=== PATIENT | female | born 1945 | race Caucasian/White ===

== ENCOUNTER 2018-03-26 09:45 | Emergency (ER) | payer MEDICARE ==
[2018-03-26] MEDS ORDERED: Meclizine TAB* 12.5 MG PO ONE (10:23)
--- NOTE | 2018-03-26 10:26 | ED ---
Dizziness - HPI Summary HPI Summary: Pt is a 73 y/o female who presents to the ED c/o dizziness. She states the symptoms began when she woke up at 8:00 this morning. Pt states her legs feel weak, she is off-balance when she walks, and has blurry vision. Bending her neck backwards makes the symptoms worse. She also c/o nausea and mild CP, which she notes might be due to burping. As per , she has had more BMs than normal. Pt denies any SOB and states the room is not spinning. She has a hx of vertigo, but has not had vertigo in 6 years, and states this does not feel like vertigo. Pt used to be on meclizine for her vertigo, but states that it never has really helped her symptoms. She denies any recent antibiotics. Pt is a smoker. - History Of Current Complaint Chief Complaint: EDDizziness Stated Complaint: DIZZINESS/NAUSEA Time Seen by Provider: 03/26/18 10:08 Hx Obtained From: Patient, Family/Corporate Librarian - Onset/Duration: Still Present Timing: Hours - 8:00 this morning Character: Weak, Dizzy Aggravating Factor(s): Change In Head Position - Moving head backwards Alleviating Factor(s): Nothing Associated Signs And Symptoms: Positive: Nausea, Chest Pain, Unsteady Gait, Visual Changes - Blurry vision. Negative: SOB Related History: Similar Episode/Dx as - Vertigo - Allergies/Home Medications Allergies/Adverse Reactions: Allergies Allergy/AdvReac Type Severity Reaction Status Date / Time MS Baclofen [Baclofen] Allergy Severe Shortness Verified 06/21/12 08:07 of Breath MS Codeine [Codeine] Allergy Mild Hives Verified 06/21/12 08:07 MS Penicillin G Allergy Mild GI Upset Verified 06/21/12 08:07 [Penicillin G] MS Prednisone [Prednisone] Allergy Mild Anxiety Verified 06/21/12 08:07 Home Medications: Home Medications Amitriptyline TAB* [Elavil TAB*] 20 mg PO BEDTIME 03/26/18 [History Confirmed ] Calcium Carbonate/Vitamin D3 [Calcium 600 + Vit D Tablet] 1 tab PO DAILY [History Confirmed 03/26/18] Clorazepate TAB* [Tranxene TAB*] 15 mg PO QID PRN 03/26/18 [History Confirmed ] Famotidine TAB* [Pepcid 20 MG TAB*] 40 mg PO QAM 03/26/18 [History Confirmed ] Gabapentin CAP(*) [Neurontin 100 mg CAP(*)] 100 mg PO BID 03/26/18 [History Confirmed 03/26/18] Lidocaine PATCH 5%* [Lidoderm 5% Patch*] 1 patch TRANSDERM DAILY 03/26/18 [ History Confirmed 03/26/18] Meclizine TAB* [Antivert 12.5 TAB*] 25 mg PO TID PRN 03/26/18 [History Confirmed 03/26/18] Pravastatin (NF) [Pravachol (NF)] 40 mg PO BEDTIME 03/26/18 [History Confirmed 03/26/18] metFORMIN* [Glucophage 500 MG TAB *] 500 mg PO DAILY 03/26/18 [History Confirmed 03/26/18] PMH/Surg Hx/FS Hx/Imm Hx Endocrine/Hematology History: Reports: Hx Diabetes - TAKES METFORMIN Cardiovascular History: Reports: Hx Hypercholesterolemia Denies: Hx Hypertension, Hx Pacemaker/ICD GI History: Reports: Other GI Disorders - CHRONIC INDIGESTION Sensory History: Denies: Hx Hearing Aid Neurological History: Reports: Other Neuro Impairments/Disorders - RSD, vertigo Psychiatric History: Reports: Hx Anxiety Denies: Hx Panic Disorder - Cancer History Hx Chemotherapy: No Hx Radiation Therapy: No - Surgical History Surgery Procedure, Year, and Place: PARATHYROID 7-8 YRS AGO, C SECTION 1967, [facility] Infectious Disease History: No Infectious Disease History: Denies: Traveled Outside the [place] in Last 30 Days - Family History Known Family History: Positive: Cardiac Disease - Social History Alcohol Use: None Hx Substance Use: No Substance Use Type: Reports: None Hx Tobacco Use: Yes Smoking Status (MU): Heavy Every Day Tobacco Smoker Review of Systems Positive: Blurred Vision Positive: Chest Pain Negative: Shortness Of Breath Positive: Nausea, Other - Increased BM, burping Neurological: Other - Dizziness, unsteady gait Positive: Weakness All Other Systems Reviewed And Are Negative: Yes Physical Exam - Summary Physical Exam Summary: Appearance: Well appearing, no pain distress Skin: warm, dry, reflects adequate perfusion Head/face: normal Eyes: EOMI, LUCIANA ENT: normal Neck: supple, non-tender Respiratory: CTA, breath sounds present Cardiovascular: RRR, pulses symmetrical Abdomen: non-tender, soft Bowel: present Musculoskeletal: normal, strength/ROM intact Neuro: sensory motor intact, A&Ox3, moving head makes dizzy GCS: 15 Triage Information Reviewed: Yes Vital Signs On Initial Exam: Initial Vitals Temp Pulse Resp BP Pulse Ox 97.2 F 70 17 150/80 95 03/26/18 09:51 03/26/18 09:51 03/26/18 09:51 03/26/18 09:51 03/26/18 09:51 Vital Signs Reviewed: Yes Diagnostics - Vital Signs Vital Signs Temp Pulse Resp BP Pulse Ox 03/26/18 09:51 97.2 F 70 17 150/80 95 - Laboratory Result Diagrams: 03/26/18 10:27 03/26/18 10:27 Lab Statement: Any lab studies that have been ordered have been reviewed, and results considered in the medical decision making process. - CT Brain CT CT Interpretation: No Acute Changes - CT findings are consistent with age- appropriate involutional changes and mild microvascular disease without acute intracranial abnormality. ED physician reviewed radiology report. CT Interpretation Completed By: Radiologist - EKG 10:29 Cardiac Rate: NL - 65 bpm EKG Rhythm: Sinus Rhythm Re-Evaluation - Re-Evaluation First Eval Re-Evaluation Time: 13:45 Change: Unchanged Comment: Pt refused admission and wants to leave. She is to return to the ED with any worsening symptoms for a CVA workup. Dizzy Course/Dx - Course Course Of Treatment: Pt is a 73 y/o female who presents to the ED c/o dizziness. She states the symptoms began when she woke up at 8:00 this morning. Pt states her legs feel weak, she is off-balance when she walks, and has blurry vision. Bending her neck backwards makes the symptoms worse. She also c/o nausea and mild CP, which she notes might be due to burping. Pt denies any SOB and states the room is not spinning. She has a hx of vertigo, but has not had vertigo in 6 years, and states this does not feel like vertigo. Pt used to be on meclizine for her vertigo, but states that it never has really helped her symptoms. A physical exam revealed moving head makes dizzy and a GCS of 15. A brain CT revealed CT findings are consistent with age-appropriate involutional changes and mild microvascular disease without acute intracranial abnormality. An EKG revealed normal rate of 65 bpm and normal rhythm. Final dx are dizziness and vertigo. Pt refused admission and wants to leave. She is to return to the ED with any worsening symptoms for a CVA workup. Pt is agreeable with this plan. - Diagnoses Differential Diagnosis/HQI/PQRI: Benign Paroxysmal Positional Vertigo, CVA, Dysrhythmia, Labyrinthitis, Metabolic Abnormality, Transient Ischemic Attack, Vasovagal Reaction Provider Diagnoses: Dizziness, Vertigo Discharge - Sign-Out/Discharge Documenting (check all that apply): Patient Departure - Discharge - Discharge Plan Condition: Stable Disposition: HOME Prescriptions: Meclizine TAB* [Antivert 12.5 TAB*] 25 mg PO TID #20 tab Patient Education Materials: Vertigo (ED), Dizziness (ED) Referrals: Jennifer Nicholson MD [Primary Care Provider] - 3 Days Additional Instructions: RETURN TO THE ED WITH ANY NEW OR WORSENING SYMPTOMS. - Billing Disposition and Condition Condition: STABLE Disposition: Home - Attestation Statements Document Initiated by Scribe: Yes Documenting Scribe: Amanda Olsen Provider For Whom Scribe is Documenting (Include Credential): Moose Monsivais MD Scribe Attestation: Amanda Calle scribed for Moose Monsivais MD on 03/26/18 at 1424. Scribe Documentation Reviewed: Yes Provider Attestation: The documentation as recorded by the Amanda solomon accurately reflects the service I personally performed and the decisions made by Moose gordon MD
[2018-03-26 10:38] LABS: ABS Basophils 0.1 10^3/ul (0-0.2); ABS Eosinophils 0.2 10^3/ul (0-0.6); ABS Lymphocytes 1.8 10^3/ul (1.0-4.8); ABS Monocytes 0.7 10^3/ul (0-0.8); ABS Neutrophils 6.3 10^3/ul (1.5-7.7); ABS Nucleated RBC 0 10^3/ul; Eosinophil % 2.2 % (0-6); Hematocrit 43 % (35-47); Hemoglobin 14.7 g/dl (12.0-16.0); Lymphocyte % 19.5 % (25-47); Mean Corpuscular HGB Conc 34 g/dl (31-36); Mean Corpuscular Hemoglobin 29 pg (27-31); Mean Corpuscular Volume 85 fL (80-97); Mean Platelet Volume 7.8 um3 (7.4-10.4); Nucleated Red Blood Cells % 0.1; Platelet Count 323 10^3/ul (150-450); Red Cell Distribution Width 14 % (10.5-15)
[2018-03-26 10:47] LABS: INR 0.9 (0.77-1.02)
--- NOTE | 2018-03-26 11:27 | RAD ---
INDICATION: Dizziness and ataxia COMPARISON: None. TECHNIQUE: Contiguous axial sections of the brain were obtained from the skull base to the vertex without contrast. FINDINGS: The ventricles, cisterns and sulci exhibit symmetrical involutional changes. There is a mild degree of periventricular and subcortical white matter hypoattenuation consistent with mild microvascular disease. The franz-white matter differentiation is adequately maintained and there is no sulcal effacement. No significant focal abnormality or mass effect is present. There is no evidence for intracranial hemorrhage. No significant focal osseous abnormality is present. The visualized portion of the paranasal sinuses appear clear. Incidentally noted is a partially visualized undescended molar partially protruding into the dependent and posterior portion of the left maxillary sinus. The mastoid air cells are well aerated bilaterally. IMPRESSION: CT findings are consistent with age-appropriate involutional changes and mild microvascular disease without acute intracranial abnormality.
[2018-03-26 13:31] LABS: Urine Appearance Clear; Urine Color Yellow; Urine Urobilinogen Negative (Negative)
[2018-03-26 13:32] LABS: Urine Blood Negative (Negative); Urine Ketones Negative (Negative); Urine Protein Negative (Negative)
[2018-03-26 14:14] VITALS: BP 150/81
== END 2018-03-26 14:13 | disposition home or self-care (01) ==
LOC: ED 09:45
DX: R42 Dizziness and giddiness (principal); E11.9 Type 2 diabetes mellitus without complications; F17.200 Nicotine dependence, unspecified, uncomplicated; Z79.84 Long term (current) use of oral hypoglycemic drugs; Z88.5 Allergy status to narcotic agent; Z88.0 Allergy status to penicillin; Z88.8 Allergy status to other drugs, medicaments and biological substances
CPT/HCPCS: 36415; 70450; 80053; 81003; 83605; 85025; 85610; 85730; 93005; 99283; A9270-GY